=== PATIENT | male | born 1945 | race Caucasian/White ===

== ENCOUNTER 2025-03-29 20:19 | Inpatient (IN) | payer MEDICARE, OTHER ==
[~2025-03-29] VITALS: Ht 170.2 cm; Wt 58.1 kg
[2025-03-29] MEDS ORDERED: PRAV10TA38 PO (20:36)
[2025-03-29] MEDS ORDERED: FERR325T28 PO (20:36)
[2025-03-29] MEDS ORDERED: POLY250017 PO (20:36)
[2025-03-29] MEDS ORDERED: METO25TA6 PO (20:36)
[2025-03-29] MEDS ORDERED: AMLO10TA59 PO (20:36)
[2025-03-29] MEDS ORDERED: DICL100G61 TP (20:36)
[2025-03-29] MEDS ORDERED: TAMS0.4C PO (20:36)
[2025-03-29] MEDS ORDERED: ALBU8.5H8 IH (20:36)
[2025-03-29] MEDS ORDERED: MULT-1188 PO (20:36)
[2025-03-29 21:17] LABS: WHITE BLOOD COUNT (AUTO) 4.3 K/uL (3.6-10.2)
[2025-03-29 21:24] LABS: PLATELET COUNT (AUTO) 238 K/uL (152-348); RED BLOOD CELL COUNT(AUTO) 3.00 MIL/uL (4.06-5.63); RED CELL DISTRIBUTION WIDTH 15.1 % (12.1-16.2)
[2025-03-29 21:29] LABS: ASPARTATE AMINOTRANSFERASE 11 U/L (15-37); CREATINE KINASE, TOTAL 25 U/L (39-308); CREATININE 1.1 mg/dL (0.6-1.3); SODIUM SERUM 145 mmol/L (136-145); TOTAL PROTEIN, SERUM 5.7 g/dL (6.4-8.2); UREA NITROGEN, BLOOD 31 mg/dL (7-18)
[2025-03-29 21:35] LABS: ETHANOL < 3 MG/DL (0-10)
[2025-03-29 22:53] VITALS: BP 100/79
[2025-03-30] MEDS ORDERED: MAG HYDROX/AL HYDROX/SIMETH 30 ML LIQUID UDC PO PRN (01:45)
[2025-03-30] MEDS ORDERED: MAGNESIUM HYDROXIDE 30 ML LIQUID UDC PO PRN (01:45)
[2025-03-30] MEDS ORDERED: LORAZEPAM 0.5 MG TABLET PO PRN (01:45)
[2025-03-30] MEDS: BLOOD SUGAR DIAGNOSTIC 1 EACH STRIP VI ONE (01:48)
[2025-03-30] MEDS: TEMAZEPAM 7.5 MG CAPSULE PO PRN ×2 (02:12→22:59)
[2025-03-30] MEDS ORDERED: DIVA-158 PO (02:35)
[2025-03-30] MEDS ORDERED: APIX5TAB PO (02:35)
[2025-03-30 08:44] VITALS: BP 155/71; TEMP 97.4; O2SAT 95
[2025-03-30] MEDS ORDERED: ALBUTEROL SULFATE 2.5 MG/3 ML NEBU NEB PRN (12:15)
[2025-03-30] MEDS: FERROUS SULFATE 325 MG TABEC PO SCH (14:28)
[2025-03-30] MEDS: TAMSULOSIN HCL 0.4 MG CAP.SR.24H PO SCH (14:28)
[2025-03-30] MEDS: AMLODIPINE 10 MG TABLET PO SCH (14:28)
[2025-03-30] MEDS: MULTIVIT, IRON, MIN NO. 8, FA TABLET PO SCH (14:29)
[2025-03-30] MEDS: DIVALPROEX SPRINKLE 125 MG CAP.SPRINK PO SCH (16:52)
[2025-03-30] MEDS: LORAZEPAM 0.5 MG TABLET PO PRN (16:52)
[2025-03-30] MEDS: APIXABAN 5 MG TABLET PO SCH (16:53)
[2025-03-30 16:54] VITALS: BP 110/46; TEMP 97.6; O2SAT 97
[2025-03-30 19:54] VITALS: BP 123/62; TEMP 97.5; O2SAT 96
[2025-03-30] MEDS: ATORVASTATIN 10 MG TABLET PO SCH (20:59)
[2025-03-30] MEDS: OLANZAPINE ZYDIS 5 MG TAB.RAPDIS PO SCH (20:59)
[2025-03-31] MEDS: ACETAMINOPHEN 325 MG TABLET PO PRN (05:54)
[2025-03-31 08:17] LABS: IRON, SERUM 78.0 ug/dL (50-175)
[2025-03-31 08:21] VITALS: BP 131/69; TEMP 98; O2SAT 99
[2025-03-31 08:30] LABS: GLUCOSE FASTING 100.0 mg/dL (70-115)
[2025-03-31] MEDS: ASCORBIC ACID 500 MG TABLET PO SCH (08:52)
[2025-03-31] MEDS: MIRALAX 17 GM POWD.PACK PO SCH (08:53)
[2025-03-31 09:34] LABS: VALPROIC ACID 17 ug/mL (50-100)
[2025-03-31 15:14] VITALS: BP 136/67; TEMP 98; O2SAT 99
[2025-03-31 20:00] VITALS: BP 97/74; TEMP 97.9; O2SAT 97
[2025-04-01 05:12] LABS: FOLATE (FOLIC ACID), SERUM 14.5 ng/mL (>3.0); TRIIODOTHYRONINE, FREE 2.8 pg/mL (2.0-4.4)
[2025-04-01] MEDS: DIVALPROEX 250 MG TABLET.DR PO SCH (08:49)
[2025-04-01] MEDS: CYANOCOBALAMIN 1,000 MCG TABLET PO SCH (08:49)
[2025-04-01 09:22] VITALS: BP 110/62; TEMP 98; O2SAT 98
[2025-04-01 15:20] VITALS: BP 109/45; TEMP 98; O2SAT 98
[2025-04-01 20:24] VITALS: BP 115/83; TEMP 97.9; O2SAT 97
[2025-04-01] MEDS: OLANZAPINE 5 MG TABLET PO SCH (20:25)
[2025-04-02 08:22] VITALS: BP 150/50; TEMP 98; O2SAT 98
[2025-04-02 15:47] VITALS: BP 114/54; TEMP 98; O2SAT 98
[2025-04-02 20:11] VITALS: BP 118/61; TEMP 97.8; O2SAT 96
[2025-04-03 08:27] VITALS: BP 137/51; TEMP 98; O2SAT 98
[2025-04-03 16:43] VITALS: BP 111/45; TEMP 98; O2SAT 98
[2025-04-03 20:25] VITALS: BP 132/95; TEMP 97.7; O2SAT 96
[2025-04-04 08:50] VITALS: BP 135/75; TEMP 98; O2SAT 98
[2025-04-04 16:49] VITALS: BP 123/66; TEMP 98; O2SAT 98
[2025-04-05 08:53] VITALS: BP 133/57; TEMP 98; O2SAT 98
[2025-04-05] MEDS: OLANZAPINE 10 MG VIAL IM STA (12:51)
[2025-04-05 16:42] VITALS: BP 130/67; TEMP 98; O2SAT 98
[2025-04-05 20:13] VITALS: BP 126/66; TEMP 98.1; O2SAT 96
[2025-04-06 08:13] VITALS: BP 145/64; TEMP 97.6; O2SAT 96
[2025-04-06] MEDS: DIVALPROEX SPRINKLE 125 MG CAP.SPRINK PO SCH (09:30)
[2025-04-06] MEDS: OLANZAPINE 2.5 MG TABLET PO SCH (13:47)
[2025-04-06 16:46] VITALS: BP 124/61; TEMP 97.5; O2SAT 96
[2025-04-06 19:48] VITALS: BP 132/52; TEMP 97.6; O2SAT 94
[2025-04-06 21:19] LABS: *BILIRUBIN,URIN NEGATIVE (NEGATIVE); *BLOOD, URINE NEGATIVE (NEGATIVE); *CLARITY,URINE CLEAR (CLEAR); *COLOR,URINE YELLOW (YELLOW); *KETONES,URINE TRACE (NEGATIVE); *PROTEIN,URINE NEGATIVE (NEGATIVE); *UROBILINOGEN,URINE 1.0 E.U./dl (NORMAL); LEUKOCYTE ESTERASE ,URINE NEGATIVE (NEGATIVE); NITRITE, URINE NEGATIVE (NEGATIVE); UGLUCOSE NEGATIVE (NEGATIVE)
[2025-04-06 21:42] LABS: SQUAMOUS EPITHELIAL CELL,UR FEW /HPF (NONE SEEN)
[2025-04-07 07:42] LABS: PLATELET COUNT (AUTO) 220 K/uL (152-348); RED BLOOD CELL COUNT(AUTO) 3.35 MIL/uL (4.06-5.63); RED CELL DISTRIBUTION WIDTH 15.2 % (12.1-16.2); WHITE BLOOD COUNT (AUTO) 3.6 K/uL (3.6-10.2)
[2025-04-07 07:48] LABS: CREATININE 1.1 mg/dL (0.6-1.3); SODIUM SERUM 145 mmol/L (136-145); UREA NITROGEN, BLOOD 46 mg/dL (7-18)
[2025-04-07 09:42] VITALS: BP 162/77; TEMP 98; O2SAT 96
[2025-04-07 15:18] VITALS: BP 143/77; TEMP 98; O2SAT 96
[2025-04-07] MEDS: OLANZAPINE 10 MG VIAL IM ONE (19:53)
[2025-04-07 20:30] VITALS: BP 140/70; TEMP 98.2; O2SAT 97
[2025-04-08 07:40] VITALS: BP 139/62; TEMP 98.2; O2SAT 96
[2025-04-08 15:45] VITALS: BP 131/60; TEMP 98; O2SAT 96
[2025-04-08 20:29] VITALS: BP 114/49; TEMP 97.9; O2SAT 96
[2025-04-09 09:37] VITALS: BP 139/55; TEMP 98; O2SAT 98
[2025-04-09] MEDS: OLANZAPINE 2.5 MG TABLET PO SCH (10:23)
[2025-04-09 15:18] VITALS: BP 122/52; TEMP 98; O2SAT 98
[2025-04-09 20:10] VITALS: BP 102/49; TEMP 98.3; O2SAT 96
[2025-04-10 08:49] VITALS: BP 142/76; TEMP 98; O2SAT 98
[2025-04-10 16:34] VITALS: BP 147/88; TEMP 98; O2SAT 98
[2025-04-10 20:10] VITALS: BP 140/70; TEMP 97.8; O2SAT 93
[2025-04-11 08:53] VITALS: BP 144/75; TEMP 98; O2SAT 98
[2025-04-11 09:30] VITALS: BP 144/75
[2025-04-11] MEDS ORDERED: ENSURE ENLIVE (VAN) 240 ML LIQUID PO SCH (17:00)
== END 2025-04-11 13:00 | DRG 885 ==
LOC: ER 20:26 → GPS 22:25
PROVIDERS: ADMIT Psychiatry & Neurology Psychosomatic Medicine; ATTEND Nurse Practitioner Family
DX: F29 Unspecified psychosis not due to a substance or known physiological condition (principal); E44.0 Moderate protein-calorie malnutrition; Z66 Do not resuscitate; D63.8 Anemia in other chronic diseases classified elsewhere; E88.09 Other disorders of plasma-protein metabolism, not elsewhere classified; Z79.01 Long term (current) use of anticoagulants; F03.93 Unspecified dementia, unspecified severity, with mood disturbance; I11.9 Hypertensive heart disease without heart failure; F03.94 Unspecified dementia, unspecified severity, with anxiety; Z85.46 Personal history of malignant neoplasm of prostate; N28.9 Disorder of kidney and ureter, unspecified; D53.9 Nutritional anemia, unspecified; R79.89 Other specified abnormal findings of blood chemistry; Z79.899 Other long term (current) drug therapy; E78.5 Hyperlipidemia, unspecified; Z88.5 Allergy status to narcotic agent; J98.4 Other disorders of lung
CPT/HCPCS: 36415; 70450; 71045; 80164; 82746; 83550; 84443; 84481; 84484; 85025; 85730; 87086; C1758; G0480; J2358; J3490